=== PATIENT | male | born 1965 ===

== ENCOUNTER 2022-01-06 11:26 | Day surgery (SDC) | payer OTHER ==
[~2022-01-06 11:26] MED LIST: CARDURA XL4 MG PO; CLONAZEPAM0.5 MG PO; IRBESARTAN-HCT1 EAC1 PO; PROTONIX40 MG PO; SYMBICORT 16010.2 GM IH
[2022-01-06] MEDS ORDERED: PERCOCET 5-3251 EACH PO (11:31)
== END 2022-01-06 16:00 | disposition home or self-care (01) ==
LOC: CIR.AMB 11:26
PROVIDERS: ATTEND Surgery
DX: C73 Malignant neoplasm of thyroid gland (principal); Z20.822 Contact with and (suspected) exposure to COVID-19; I10 Essential (primary) hypertension; J44.9 Chronic obstructive pulmonary disease, unspecified; Z86.16 Personal history of COVID-19; Z71.6 Tobacco abuse counseling; F17.210 Nicotine dependence, cigarettes, uncomplicated; F32.A Depression, unspecified